=== PATIENT | male | born 1965 | race Caucasian/White ===

== ENCOUNTER 2017-06-08 23:27 | Emergency (ER) | payer BC ==
--- NOTE | ~2017-06-08 | CT4 ---
[facility] A Service [facility] RADIOLOGY TEXT RESULTS PATIENT: SANCHEZ DURAN LOCATION: SED : 61 UNIT #: [id number] AGE: [address]: Carina Aleman MD SEX: M ORDER DR: [id number] [id number] [id number] E MR#: [id number] Acc #: [id number] NAME: SANCHEZ DURAN : 1965 SEX: M STUDY DATE/TIME: 06/09/2017 1:52 UNIT: SED ROOM: STUDY DESCRIPTION: CT Abd and Pelv Wo Cont Attending Physician: Carina Aleman M.D. Ordering Physician: Carina Aleman M.D. Primary Care Physician: Khanh Kelly II, M.D. MEDICAL IMAGING REPORT This report is preliminary unless electronic signature is present. EXAM CT scan of the abdomen and pelvis without contrast HISTORY Upper abdominal pain for 48 hours. COMPARISON 11/16/2012. TECHNIQUE Axial 5 mm images were obtained through the abdomen and pelvis without IV or oral contrast. This CT exam was performed with one or more of the following radiation dose reduction techniques: automatic control, adjustment of mA and/or kV according to patient size, and iterative reconstruction. FINDINGS Lung bases are clear. There is diffuse fatty changes throughout the liver. Gallbladder has some minimal high-density material within it suggesting small stones. The spleen, pancreas, adrenal glands and kidneys are normal. The aorta is normal in size and there is no adenopathy. The bowel including the appendix appears normal. The bladder and prostate gland are normal. The bones are unremarkable. IMPRESSION 1. No acute findings identified. There is no urinary stone or evidence of appendicitis. The appendix is normal. 2. Diffuse fatty changes throughout the liver. 3. Possible tiny gallstones. [facility] A Service [facility] RADIOLOGY TEXT RESULTS PATIENT: SANCHEZ DURAN LOCATION: SED : 61 UNIT #: [id number] AGE: [address]: Carina Aleman MD SEX: M ORDER DR: Dictated by... Yan Lynn M.D. THIS IS AN ELECTRONICALLY VERIFIED REPORT Yan Lynn M.D. at 06/09/2017 9:09 PM PATRICIA/ene TD: 06/09/2017 13:42 JOB #: [id number] MEDICAL IMAGING REPORT Page 1 of 1
[2017-06-08] MEDS ORDERED: BP MED (23:56)
[2017-06-09] MEDS ORDERED: AMLODIPINE-OLM1 EAC1 (00:01)
[2017-06-09 01:52] LABS: BASOPHIL# 0.1 X10e3 (0-0.3); BASOPHIL% 0.8 % (0-2.5); EOSINOPHIL% 0.1 % (0.0-7.0); HEMATOCRIT 45.1 % (38.0-50.0); HEMOGLOBIN 15.3 gm/dL (13.0-16.0); LYMPHOCYTE% 11.6 % (17.0-45.0); MEAN CELL VOLUME 91.7 FL (83-96); MEAN CORPUSCULAR HEMOGLOBIN 31.1 PG (28-34); MEAN CORPUSCULAR HGB CONC 33.9 g/dL (30-36); MEAN PLATELET VOLUME 8.8 FL (6.5-11.5); MONOCYTE# 0.5 X10e3 (0-1.0); MONOCYTE% 5.3 % (3.0-12.0); NEUTROPHIL# 7.4 X10e3 (1.5-7.1); NEUTROPHIL% 82.2 % (40-75); PLATELET COUNT 226 X10e3 (140-420); RED BLOOD COUNT 4.91 X10e (3.90-5.60); RED CELL DISTRIBUTION WIDTH 13.7 % (11.0-15.5)
[2017-06-09 01:55] LABS: DIFF IND NO
[2017-06-09 02:19] LABS: ALBUMIN SERUM 4.5 g/dL (3.5-5.0); BILIRUBIN, DIRECT 1.2 mg/dL (0.0-0.2); BILIRUBIN,INDIRECT 1.8 mg/dL (0.0-0.9); CALCIUM SERUM 9.2 mg/dL (8.4-10.2); PROTEIN TOTAL SERUM 7.6 g/dL (6.0-8.3)
[2017-06-09 02:20] LABS: POTASSIUM 2.7 mmol/L (3.5-5.1)
[2017-06-09 02:20] LABS: URINE APPEARANCE HAZY; URINE BLOOD NEG (NEG); URINE COLOR YELLOW; URINE GLUCOSE 50 MG/DL (NORM); URINE KETONE TRACE (NEG); URINE LEUKOCYTE ESTERASE NEG (NEG); URINE NITRATE NEG (NEG); URINE PROTEIN NEG (NEG); URINE SOURCE CLEAN CATCH
[2017-06-09 02:22] LABS: MICRO INDICATED? NO; URINE BILIRUBIN POS (NEG)
== END 2017-06-09 03:38 | disposition home or self-care (01) ==
LOC: SED 23:27
PROVIDERS: Emergency Medicine
DX: K75.9 Inflammatory liver disease, unspecified (principal); I10 Essential (primary) hypertension
CPT/HCPCS: 36415; 74176; 80048; 80076; 81003; 83690; 85025; 96374; 96375; 99284; J2270; J2405